=== PATIENT | male | born 1990 | race Caucasian/White ===

== ENCOUNTER 2019-12-12 13:34 | Outpatient (REF) | payer MEDICAID, SELFPAY | END 2019-12-12 13:35 | disposition home or self-care (01) | LOC: HO.LAB 13:34 | PROVIDERS: Visit Provider Internal Medicine | DX: Z20.828 Contact with and (suspected) exposure to other viral communicable diseases (principal) | CPT/HCPCS: 87635 ==

== ENCOUNTER 2021-02-21 19:24 | Emergency (ER) | payer MEDICAID, SELFPAY ==
[2021-02-21 20:59] VITALS: BP 114/81; PULSE 82; RESP 18; TEMP 36.9; O2SAT 97; BMI 34.1
--- NOTE | 2021-02-21 23:53 | ED.BACK ---
HPI - Back Pain/Injury General Chief Complaint: Back Pain/Injury Stated Complaint: lower back pain Source: patient Mode of arrival: ambulatory Limitations: no limitations History of Present Illness HPI Narrative: 30-year-old male presents with sudden onset of stabbing left-sided flank pain radiating to the front of his groin. 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 Does not report any fevers, chills or symptoms indicating cauda equina. MD elicited complaint: back pain Onset (ago): hour(s) (Within the hour of arrival) Timing: constant Severity: severe Pain scale (0-10): 8 Similar Symptoms Previously: No Quality: sharp and spasming Location: left flank Radiation: none Exacerbating factors: movement Relieving factors: none Context: while lifting, turning/twisting and bending Associated symptoms: denies other symptoms Work related injury: Yes Related Data Previous Rx's Medication Instructions Recorded cyclobenzaprine 10 mg tablet 10 mg PO TID PRN #20 tab 02/22/21 Allergies Allergy/AdvReac Type Severity Reaction Status Date / Time No Known Allergies Allergy Unverified 11/20/19 16:45 [No Known Allergies*] Review of Systems Review of Systems: Constitutional: No Fever, No Chills ENT/Mouth: No Ear Pain, No Hoarseness, No sore throat Eyes: No Eye Pain, No Swelling, No Redness, No Foreign Body Cardiovascular: No Chest Pain, No SOB Respiratory: No Cough, No Dyspnea Gastrointestinal: No Nausea, No Vomiting, No Diarrhea, No abdominal Pain Genitourinary: No Dysuria, No Hematuria Musculoskeletal: positive lower back pain, No Myalgias, No Joint Swelling Skin: No Skin lacerations, No rash Neuro: No Weakness, No Numbness, No Paresthesias, No Loss of Consciousness, No Dizziness, No Headache Psych: No Anxiety/Panic, No Depression Heme/Lymph: no easy bruising, no Lymphadenopathy Endocrine: No Polyuria, No Polydipsia Yes all other systems are reviewed and are negative [facility] Past Medical History Attestation statement: The following information was validated with the patient. Source: old records reviewed Social History Social History Advance Directives: No Advance Directives Information Provided: No Physical Exam Vital Signs: Vital Signs: Last Vital Signs Temp 98.5 F 02/21/21 20:59 Pulse 82 02/21/21 20:59 Resp 18 02/21/21 20:59 BP 114/81 02/21/21 20:59 Pulse Ox 97 02/21/21 20:59 BMI result Body Mass Index 34.1 Appearance: Alert. Oriented X3. Moderate distress. Eyes: Pupils equal, round and reactive to light. ENT: Pharynx normal. Moist mucous membranes. Neck: Normal inspection. Neck supple. No nuchal rigidity. CVS: Normal heart rate and rhythm. Pulses normal. Respiratory: No respiratory distress. Breath sounds normal. Abdomen: Soft and nontender. Left-sided CVA tenderness noted. Skin: Skin warm and dry. Normal skin color. Normal skin turgor. Extremities: No lower extremity edema. Gait well-balanced well coordinated. Neuro: No motor deficit. No sensory deficit. Cranial nerves 2-12 intact. Course Course Course Narrative: 30-year-old male presents with sudden onset of left flank and lower back pain radiating to his abdomen. 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 He was raking asphalt and had a sharp stabbing pain that took his breath away. Does not have a prior history of kidney stones, physical exam has CVA tenderness to the left side. Has full range of motion to all extremities, neurovascularly intact, brisk capillary refills to all extremities. No edema noted. No indication of cauda equina. Will order urinalysis CBC and Chem 7. If urinalysis is positive for heme or bacteria will investigate possible pyelo versus kidney stone. 12:45 a.m. Urinalysis is negative, CBC is negative, no indication of infection or organ failure at this time. Most likely musculoskeletal pain versus pyelo, UTI or kidney stone. Will treat with Toradol and cyclobenzaprine and discharge home. Patient understands that he must follow up with primary care physician for further follow-up. Patient verbalized understanding of and agrees to plan of care discharge home. MDM - Back Pain/Injury Differential Diagnosis Differential diagnosis: Likely strain of lumbar region, renal colic and pyelonephritis Medical Records Attestation: I reviewed the patient's medical records. Lab Data Attestation: I reviewed the patient's lab results. Result diagrams: 02/22/21 00:22 02/22/21 00:22 Labs: Lab Results 02/22/21 02/22/21 02/22/21 Range/Units 00:22 00:22 00:22 WBC 10.7 (4.8-10.8) X10*3/uL RBC 5.52 (4.60-5.80) X10*6/uL Hgb 15.9 (14.0-18.0) g/dl Hct 47.0 (42.0-52.0) % MCV 85.1 (80.0-98.0) fL MCH 28.8 (27.0-33.0) pg MCHC 33.8 (31.0-36.0) g/dl RDW 12.2 (11.0-16.0) % Plt Count 273 (160-400) X10*3/uL MPV 10.1 (9.4-12.4) fL Immature Gran % (Auto) 0.3 (0.0-0.4) % Neut % (Auto) 53.3 (45-73) % Lymph % (Auto) 35.0 (20-40) % [place] % (Auto) 7.9 (2-11) % Eos % (Auto) 3.1 (0-4) % Baso % (Auto) 0.4 (0-2) % Lymph # (Auto) 3.7 (1.2-4.9) X10*3/uL [place] # (Auto) 0.8 (0.1-1.2) X10*3/uL Eos # (Auto) 0.3 (0.0-0.4) X10*3/uL Baso # (Auto) 0.0 (0.0-0.2) X10*3/uL Abs Immat Gran (auto) 0.03 (0.00-0.03) X10*3/uL Absolute Neuts (auto) 5.7 (2.0-8.3) x10*3/uL Absolute Nucleated RBC 0.000 (0.0-0.012) X10*3/uL Nucleated RBC % (auto) 0.0 (0.0-0.2) /100WBC Sodium 139 (135-145) mmol/L Potassium 4.0 (3.3-5.1) mmol/L Chloride 105 (96-108) mmol/L Carbon Dioxide 27 (22-29) mmol/L Anion Gap 11 L (12-20) BUN 15 (9-16) mg/dL Creatinine 0.85 (0.5-1.4) mg/dL Estim Creat Clear Calc 134.3 Estimated GFR > 60 Random Glucose 92 (60-115) mg/dL Calcium 9.6 (8.4-10.2) mg/dL Urine Color YELLOW Urine Appearance HAZY Urine pH 7.0 (5.0-8.0) Ur Specific [place] 1.020 (1.005-1.025) Urine Protein NEG (NEG-TRACE) MG/DL Urine Glucose (UA) NEG (NEG) MG/DL Urine Ketones NEG (NEG) MG/DL Urine Blood NEG (NEG) Urine Nitrite NEG (NEG) Ur Leukocyte Esterase NEG (NEG) Discharge Plan Discharge Clinical Impression: Strain of lumbar region Qualifiers: Encounter type: initial encounter Qualified Code(s): S39.012A - Strain of muscle, fascia and tendon of lower back, initial encounter Patient Disposition: Home, Self-Care Instructions: Acute Low Back Pain (ED) Additional Instructions: You were evaluated for sudden onset of lower back pain. Urinalysis is negative, CBC is normal. Highly unlikely that this is a kidney stone or UTI. Most likely to be a lumbar back strain from physical labor. Please take cyclobenzaprine every 8 hours as needed for muscle spasms. You may consider taking Tylenol 650 mg every 6 hours as needed for pain management. Do not take Motrin-which is the same as Advil and ibuprofen-while taking cyclobenzaprine. Cyclobenzaprine as a muscle relaxer. This medication can delay reaction time, increased risk for drowsiness and falls. Do not drive or operate machinery while taking this medication. Please follow-up with primary care physician as you may need physical therapy if pain persists. Thank you for choosing this emergency department for evaluation. Please follow-up with primary care physician as needed. Return to the emergency department for any new, concerning, or worsening symptoms. Prescriptions: New cyclobenzaprine 10 mg tablet 10 mg PO TID PRN (Reason: muscle spasm) Qty: 20 RF: 0 Stand Alone Forms: Work/School Release
[2021-02-22 00:26] LABS: MANUAL DIFF FLAG NO
[2021-02-22 00:27] LABS: Basophils Percent Auto 0.4 % (0-2); Eosinophils Absolute Auto 0.3 X10*3/uL (0.0-0.4); Eosinophils Percent Auto 3.1 % (0-4); Hemoglobin 15.9 g/dl (14.0-18.0); Imm Gran Abs Auto 0.03 X10*3/uL (0.00-0.03); Imm Gran Pct Auto 0.3 % (0.0-0.4); Lymphocytes Absolute Auto 3.7 X10*3/uL (1.2-4.9); Mean Corpuscular HGB Conc 33.8 g/dl (31.0-36.0); Mean Corpuscular Hemoglobin 28.8 pg (27.0-33.0); Mean Corpuscular Volume 85.1 fL (80.0-98.0); Mean Platelet Volume 10.1 fL (9.4-12.4); Monocytes Absolute Auto 0.8 X10*3/uL (0.1-1.2); Monocytes Percent Auto 7.9 % (2-11); Neutrophils Absolute Auto 5.7 x10*3/uL (2.0-8.3); Neutrophils Percent Auto 53.3 % (45-73); Platelet Count 273 X10*3/uL (160-400); Red Blood Count 5.52 X10*6/uL (4.60-5.80); Red Cell Distribution Width 12.2 % (11.0-16.0); White Blood Count 10.7 X10*3/uL (4.8-10.8)
[2021-02-22 00:28] LABS: Appearance Urine HAZY; Color Urine YELLOW; Glucose Urine UA NEG (NEG); Leukocyte Esterase Urine NEG (NEG); Nitrite Urine NEG (NEG); Urine Blood NEG (NEG); Urine Ketones NEG (NEG); Urine Protein NEG (NEG-TRACE)
[2021-02-22 00:42] LABS: Anion Gap 11 (12-20); Blood Urea Nitrogen 15 mg/dL (9-16); Calcium 9.6 mg/dL (8.4-10.2); Carbon Dioxide 27 mmol/L (22-29); Chloride 105 mmol/L (96-108); Creatinine Clr Calc Pharmacy 134.3; Estimated Glomerular Filt Rate > 60; Glucose Random 92 mg/dL (60-115); Sodium 139 mmol/L (135-145)
[2021-02-22] MEDS: Ketorolac Tromethamine 30 MG/ML VIAL IVPUSH (00:44)
[2021-02-22] MEDS: Cyclobenzaprine HCl 10 MG TABLET PO (01:00)
== END 2021-02-22 01:04 | disposition home or self-care (01) ==
PROVIDERS: Nurse Practitioner Family; Emergency Provider Emergency Medicine
DX: S39.012A Strain of muscle, fascia and tendon of lower back, initial encounter (principal); X50.1XXA Overexertion from prolonged static or awkward postures, initial encounter; Y93.89 Activity, other specified; Y92.014 Private driveway to single-family (private) house as the place of occurrence of the external cause; Y99.9 Unspecified external cause status
CPT/HCPCS: 36415; 80048; 81003; 85025; 96374; 99284; J1885

== ENCOUNTER 2021-06-09 05:31 | Emergency (ER) | payer MEDICAID, SELFPAY ==
--- NOTE | ~2021-06-09 | XR_ITS ---
EXAMINATION: XR CHEST CLINICAL INFORMATION: Dyspnea COMPARISON: 12/19/2018 TECHNIQUE: 2 views of the chest were obtained. FINDINGS: The lungs are clear with no focal consolidation. No evidence of pneumothorax, pulmonary edema, or pleural effusions. The cardiomediastinal silhouette is unremarkable. No acute osseous findings. XR/XR chest 2V IMPRESSION: No acute cardiopulmonary findings.
[2021-06-09 05:36] VITALS: BP 126/84; PULSE 119; RESP 18; TEMP 37.4; O2SAT 95; BMI 34.1
[2021-06-09 06:26] LABS: Influenza A PCR POSITIVE (Negative); Influenza B PCR NEGATIVE (Negative); Resp Syncy Virus RNA Qual PCR NEGATIVE (Negative); SARS COV2 PCR INHOUSE NEGATIVE (Negative)
--- NOTE | 2021-06-09 07:10 | ED.GENADULT ---
HPI - General Adult General Chief complaint: General Medical Stated complaint: difficulty breathing, headaches x2 days Time Seen by Provider: 06/09/21 05:47 Source: patient Mode of arrival: ambulatory Limitations: no limitations History of Present Illness HPI narrative: 31-year-old male who presents emergency department for evaluation of headache, cough, chest pain, shortness of breath, fatigue, myalgias and arthralgias. The patient states he has been sick for 2 days. He states he has a constant, throbbing headache which is moderate intensity. He has taken ibuprofen 800 mg 3 times a day with only minimal improvement of his symptoms. He has complained of chest pain. He points to his sternum when asked to localize the pain. The pain is a tightness which is [id number] in intensity and is worse with breathing and with coughing. Has a cough which is nonproductive. He feels fatigued, he is also complaining of myalgias and arthralgias. He does have a history of asthma. Has been using his inhaler with some relief his symptoms. MD complaint: Chest pain Onset (ago): day(s) (2) Location: chest (Sternum) Radiation: non-radiation Severity: moderate Severity scale (1-10): 4 Quality: sharp Pain Consistency: intermittent Relieving factors: none Exacerbating factors: other (Coughing, breathing) Associated symptoms: cough, fever/chills, headaches, malaise and shortness of breath Treatments prior to arrival: NSAID Related Data Previous Rx's Medication Instructions Recorded cyclobenzaprine 10 mg tablet 10 mg PO TID PRN #20 tab 02/22/21 oseltamivir 75 mg capsule (Tamiflu) 75 mg PO BID 5 Days #10 cap 06/09/21 Allergies Allergy/AdvReac Type Severity Reaction Status Date / Time No Known Allergies Allergy Unverified 11/20/19 16:45 [No Known Allergies*] Review of Systems Review of Systems: Yes all other systems are reviewed and are negative [facility] Past Medical History [facility] Narrative: Past medical history: Asthma. Past surgical history: None. Social history: He denies tobacco use. He occasionally drinks alcohol. He denies drug use. Social History Social History Alcohol intake: unknown Use of substances other than those prescribed or required for medical reasons: Unknown Advance Directives: No Advance Directives Information Provided: No Physical Exam ED Vital Signs: Vital Signs - 24 hr 06/09/21 05:36 Temperature 99.3 F Pulse Rate 119 H Respiratory Rate 18 Blood Pressure 126/84 Pulse Oximetry 95 BMI result Body Mass Index 34.1 Const General: cooperative and no acute distress Orientation/consciousness: oriented to person and oriented to place Limitations: no limitations HENMT Head: Yes normal to inspection, Yes normocephalic and Yes atraumatic Ears: external ears normal General nose exam: Normal external nose present Face and sinus: Yes normal facial exam Mouth: Normal oral and palatal mucosa present Throat: Yes posterior oropharynx normal Eyes General: appearance normal, both eyes and all related structures Pupils: Equal, round and reactive pupils present Neck Neck: Yes normal visual inspection, Yes no lymphadenopathy, Yes trachea midline and Yes supple Chest Chest palpation & inspection: normal inspection of the chest and normal palpation of entire chest wall Resp Effort & Inspection: normal respiratory effort and able to speak in complete sentences Auscultation: clear to auscultation bilaterally Cardio Rate: regular rate Rhythm: regular rhythm Heart sounds: S1 normal heart sound present, S2 normal heart sound present and no murmurs GI Inspection: Yes normal to inspection Palpation (GI): Soft to palpation, nontender and no guarding Auscultation: normal bowel sounds General: Yes no CVA tenderness Back/Spine/Pelvis Back: no CVA tenderness Skin General skin exam: no rashes or lesions noted Neuro General: oriented to person and oriented to place Cranial nerves: Yes CN's II-XII intact bilaterally and Yes Equal, round and reactive pupils present Cognition (Neuro): normal cognition Motor exam (neuro): 5/5 motor strength present throughout Extrem General: Yes normal to inspection Psych Appearance: grossly normal Speech and movement: Normal speech and movement present Affect: normal affect Attitude: cooperative Thought process: Normal thought process present Thought content: Normal thought content present Course Course Course Narrative: 31-year-old male who presents emergency department for evaluation of viral-like illness x2 days with symptoms including headache, nonproductive cough, pleuritic chest pain, shortness of breath, malaise, fatigue, myalgias and arthralgias. The patient's vital signs revealed an elevated heart rate of 119 otherwise were unremarkable. Examination was unremarkable. Chest x-ray revealed no evidence of pneumonia. COVID-19 test was negative. Influenza a test was positive. Patient's symptoms are consistent with acute influenza and I did discuss this with him. Patient was started on Tamiflu 75 mg twice a day for 5 days. Is also advised to take Tylenol and ibuprofen. He was given printed and verbal instructions. He was also given a work note. Medical Decision Making Lab Data Labs: Lab Results 06/09/21 Range/Units 05:45 Influenza Type A (PCR) POSITIVE A (Negative) Influenza Type B (PCR) NEGATIVE (Negative) RSV RNA Qual (PCR) NEGATIVE (Negative) SARS-CoV-2 RNA (RT-PCR) NEGATIVE (Negative) Discharge Plan Discharge Clinical Impression: Influenza A Patient Disposition: Home, Self-Care Instructions: Influenza (ED) Additional Instructions: Your chest x-ray was normal at this time we do not have any evidence for pneumonia which is reassuring. Your COVID-19 test was negative. Your influenza A test was positive. You have the flu. I prescribed Tamiflu 75 mg pills, 1 pill every 12 hours for 5 days. This should help reduce the number of days that your sick with the flu. Take ibuprofen 200 mg pills, 3 pills every 6 hours as needed for pain. Take Tylenol (acetaminophen) 500 mg pills, 2 pills every 4 to 6 hours as needed for pain. Follow-up with your doctor in 2 days. Please return to the emergency department if your symptoms get worse or if you develop any symptoms that are concerning to you. Read the printed instructions on the flu. Please see work note. Prescriptions: New oseltamivir [Tamiflu] 75 mg capsule 75 mg PO BID 5 Days Qty: 10 0RF No Action cyclobenzaprine 10 mg tablet 10 mg PO TID PRN (Reason: muscle spasm) Qty: 20 0RF Stand Alone Forms: Work/School Release
[2021-06-09 07:28] VITALS: BP 129/86; PULSE 97; RESP 16; O2SAT 98
== END 2021-06-09 07:43 | disposition home or self-care (01) ==
PROVIDERS: Emergency Provider Emergency Medicine Emergency Medical Services
DX: J11.1 Influenza due to unidentified influenza virus with other respiratory manifestations (principal); Z20.822 Contact with and (suspected) exposure to COVID-19; R51.9 Headache, unspecified
CPT/HCPCS: 0241U; 71046; 99283; 99284